=== PATIENT | male | born 1950 | race Caucasian/White ===

== ENCOUNTER 2017-02-27 16:26 | Emergency (ER) | payer MEDICARE ==
[~2017-02-27] VITALS: Ht 172.7 cm; Wt 65.8 kg
[2017-02-27 18:40] LABS: MEAN CORPUSCULAR HGB CONC 34.4 g/dl (32.0-36.5); MEAN CORPUSCULAR VOLUME 93.1 fl (80.0-96.0); PLATELET COUNT, AUTOMATED 250 k/mm3 (150-450); RED CELL DISTRIBUTION WIDTH 12.5 % (11.5-14.5); WHITE BLOOD COUNT 11.2 K/mm3 (4.0-10.0)
[2017-02-27 18:43] LABS: BASO # 0.1 K/mm3 (0.0-0.2); BASO % 0.5 % (0.0-1.0); EOS # 0.4 K/mm3 (0.0-0.50); EOS % 3.9 % (0.0-3.0); LARGE UNSTAINED CELL # 0.2 K/mm3 (0.0-0.4); LARGE UNSTAINED CELL % 1.8 % (0.0-4.0); LYMPH # 2.9 K/mm3 (1.5-4.5); LYMPH % 25.7 % (24.0-44.0); MONO # 0.7 K/mm3 (0.0-0.8); MONO % 6.5 % (0.0-5.0); NEUTROPHILS # 6.9 K/mm3 (1.8-7.7); NEUTROPHILS % 61.7 % (36.0-66.0)
[2017-02-27 18:44] LABS: DIFF SLIDE NUMBER 298
--- NOTE | 2017-02-27 19:00 | REPUSA ---
Clinical history: Right upper quadrant pain. Findings: The pancreas is limited in visualization secondary to overlying bowel gas, but appears dashawn sly unremarkable. The liver demonstrates uniform echotexture and echogenicity, with no mass lesions. The gallbladder is unremarkable. The common bile duct measures 6 mm and is within normal limits. The right kidney measures 10.5 x 7.3 x 4.9 cm. There is a simple right renal cyst, measuring 3.5 x 4.1 cm . There is no ascites. Impression: No acute findings. Simple right renal cyst.
[2017-02-27 19:05] LABS: ALBUMIN 4.3 GM/DL (3.2-5.2); ALBUMIN/GLOBULIN RATIO 1.43 (1.00-1.93); ALKALINE PHOSPHATASE 96 U/L (45-117); ALT/SGPT 36 U/L (12-78); AMYLASE 55 U/L (25-115); ANION GAP 8 MEQ/L (8-16); AST/SGOT 22 U/L (15-37); BILIRUBIN,DIRECT 0.2 MG/DL (0.0-0.2); BILIRUBIN,TOTAL 0.6 MG/DL (0.2-1.0); BLOOD UREA NITROGEN 10 MG/DL (7-18); CALCIUM LEVEL 9.2 MG/DL (8.8-10.2); CARBON DIOXIDE LEVEL 25 MEQ/L (21-32); CHLORIDE LEVEL 98 MEQ/L (98-107); CREATININE FOR GFR 0.73 MG/DL (0.70-1.30); GLOMERULAR FILTRATION RATE > 60.0 (>49); GLUCOSE, FASTING 96 MG/DL (80-110); SODIUM LEVEL 131 MEQ/L (136-145); TOTAL PROTEIN 7.3 GM/DL (6.4-8.2)
[2017-02-27 19:28] VITALS: BP 149/85
== END 2017-02-27 19:30 | disposition home or self-care (01) ==
LOC: M ED 18:00
DX: N28.1 Cyst of kidney, acquired (principal); R10.11 Right upper quadrant pain; F17.200 Nicotine dependence, unspecified, uncomplicated

== ENCOUNTER → 2017-04-29 | Outpatient (REF) | payer MEDICARE ==
[2017-04-29 11:10] LABS: BASO # 0.1 K/mm3 (0.0-0.2); BASO % 0.5 % (0.0-1.0); EOS # 0.2 K/mm3 (0.0-0.50); LARGE UNSTAINED CELL # 0.2 K/mm3 (0.0-0.4); LARGE UNSTAINED CELL % 1.4 % (0.0-4.0); LYMPH # 2.1 K/mm3 (1.5-4.5); LYMPH % 18.8 % (24.0-44.0); MEAN CORPUSCULAR HEMOGLOBIN 32.6 pg (27.0-33.0); MEAN CORPUSCULAR HGB CONC 33.8 g/dl (32.0-36.5); MEAN CORPUSCULAR VOLUME 96.5 fl (80.0-96.0); MONO # 0.6 K/mm3 (0.0-0.8); MONO % 5.4 % (0.0-5.0); NEUTROPHILS # 7.5 K/mm3 (1.8-7.7); NEUTROPHILS % 71.8 % (36.0-66.0); PLATELET COUNT, AUTOMATED 278 k/mm3 (150-450); WHITE BLOOD COUNT 10.5 K/mm3 (4.0-10.0)
[2017-04-29 11:41] LABS: ALBUMIN/GLOBULIN RATIO 1.21 (1.00-1.93); ALKALINE PHOSPHATASE 90 U/L (45-117); ALT/SGPT 43 U/L (12-78); ANION GAP 5 MEQ/L (8-16); AST/SGOT 21 U/L (15-37); BILIRUBIN,TOTAL 0.4 MG/DL (0.2-1.0); BLOOD UREA NITROGEN 7 MG/DL (7-18); CARBON DIOXIDE LEVEL 29 MEQ/L (21-32); CHLORIDE LEVEL 104 MEQ/L (98-107); CHOLESTEROL LEVEL 177 MG/DL (<200); CREATININE FOR GFR 0.72 MG/DL (0.70-1.30); GLOMERULAR FILTRATION RATE > 60.0 (>49); GLUCOSE, FASTING 86 MG/DL (80-110); SODIUM LEVEL 138 MEQ/L (136-145); TOTAL PROTEIN 7.3 GM/DL (6.4-8.2); TRIGLYCERIDES LEVEL 84 MG/DL (<150)
== END ==
LOC: M SFHCPLAZ 08:33
PROVIDERS: ATTEND Physician Assistant
DX: Z13.0 Encounter for screening for diseases of the blood and blood-forming organs and certain disorders involving the immune mechanism (principal); R10.9 Unspecified abdominal pain; Z13.220 Encounter for screening for lipoid disorders; Z12.5 Encounter for screening for malignant neoplasm of prostate; R53.83 Other fatigue
CPT/HCPCS: 80053; 80061; 82306; 84443; 85025; G0103

== ENCOUNTER 2017-08-05 08:00 | Outpatient (CLI) | payer MEDICARE ==
[~2017-08-05] VITALS: Ht 172.7 cm; Wt 66.7 kg
[~2017-08-05 08:00] MED LIST: CENT1TAB PO; CRES10TA32 PO; LISI10TA4 PO
[2017-08-05] MEDS ORDERED: NS 1,000 ML IV ONE (08:15)
[2017-08-05] MEDS ORDERED: PROPOFOL 200 MG/20 ML VIAL As Ordered ONE ×2 (08:49→09:05)
[2017-08-05] MEDS ORDERED: LIDOCAINE 2% INJ 100 MG/5 ML SDV (FOR ANES.) As Ordered ONE (08:49)
--- NOTE | 2017-08-05 09:10 | ROOR ---
Patient Name: Adolph Manley Procedure Date: 08/05/2017 8:45 AM Date of : 1950 Age: 67 Room: [facility] Gender: Male Note Status: Finalized Procedure: Total Colonoscopy to Cecum + Cold Snare Polypectomy Indications: Lower abdominal pain, Change in bowel habits Providers: Ryan Thomson MD Referring MD: ZACHERY Koroma Requesting Provider: Medicines: Monitored Anesthesia Care Complications: No immediate complications. Procedure: Pre-Anesthesia Assessment: - The heart rate, respiratory rate, oxygen saturations, blood pressure, adequacy of pulmonary ventilation, and response to care were monitored throughout the procedure. The Colonoscope was introduced through the anus and advanced to the cecum, identified by appendiceal orifice and ileocecal valve. The colonoscopy was performed without difficulty. The patient tolerated the procedure well. The quality of the bowel preparation was excellent. Findings: The perianal and digital rectal examinations were normal. Non-bleeding internal hemorrhoids were found during retroflexion. The hemorrhoids were small and Grade I (internal hemorrhoids that do not prolapse). Scattered small-mouthed diverticula were found in the recto-sigmoid colon, sigmoid colon and descending colon. Two sessile polyps were found in the cecum. The polyps were small in size. These polyps were removed with a cold snare. Resection and retrieval were complete. A small polyp was found in the rectum. The polyp was sessile. The polyp was removed with a cold snare. Resection and retrieval were complete. The exam was otherwise without abnormality on direct and retroflexion views. Impression: - Non-bleeding internal hemorrhoids. - Diverticulosis in the recto-sigmoid colon, in the sigmoid colon and in the descending colon. - Two small polyps in the cecum, removed with a cold snare. Resected and retrieved. - One small polyp in the rectum, removed with a cold snare. Resected and retrieved. - The examination was otherwise normal on direct and retroflexion views. - The exam was otherwise normal to the cecum. Recommendation: - Patient has a contact number available for emergencies. The signs and symptoms of potential delayed complications were discussed with the patient. Return to normal activities tomorrow. Written discharge instructions were provided to the patient. - High fiber diet. - Discharge patient to home. - Continue present medications. - Await pathology results. - Telephone GI clinic for pathology results in 1 week. - Check Portal Online for Path Results.([email or web address]) - Repeat colonoscopy in 5 years for surveillance based on pathology results. - The findings and recommendations were discussed with the patient's family. Ryan Thomson MD Ryan Thomson MD 08/05/2017 9:09:36 AM This report has been signed electronically. Number of Addenda: 0 Note Initiated On: 08/05/2017 8:45 AM Estimated Blood Loss: Estimated blood loss: none.
[2017-08-05 09:35] VITALS: BP 138/67
== END 2017-08-05 09:46 | disposition home or self-care (01) ==
LOC: M OPP 08:00
PROVIDERS: ATTEND Internal Medicine Gastroenterology
DX: R10.30 Lower abdominal pain, unspecified (principal); R19.4 Change in bowel habit; D12.0 Benign neoplasm of cecum; K62.1 Rectal polyp; K64.0 First degree hemorrhoids; K57.30 Diverticulosis of large intestine without perforation or abscess without bleeding; I10 Essential (primary) hypertension; E78.5 Hyperlipidemia, unspecified; Z87.891 Personal history of nicotine dependence; Z79.899 Other long term (current) drug therapy

== ENCOUNTER 2017-10-09 17:42 | Emergency (ER) | payer MEDICARE ==
[~2017-10-09] VITALS: Ht 172.7 cm; Wt 68.2 kg
[~2017-10-09 17:42] MED LIST changes: -CHLO125TA PO; -LISI-538 PO; -POTA10TAB
[2017-10-09] MEDS ORDERED: POTA10TAB (17:55)
[2017-10-09] MEDS ORDERED: LISI-538 PO (17:55)
[2017-10-09] MEDS ORDERED: CHLO125TA PO (17:55)
[2017-10-09] MEDS ORDERED: CHLORTHALIDONE 25 MG TAB PO ONE (20:30)
[2017-10-09] MEDS ORDERED: LISINOPRIL 10 MG TAB PO ONE (20:30)
[2017-10-09 20:59] LABS: ANION GAP 9 MEQ/L (8-16); BLOOD UREA NITROGEN 10 MG/DL (7-18); CALCIUM LEVEL 9.5 MG/DL (8.8-10.2); CARBON DIOXIDE LEVEL 27 MEQ/L (21-32); CHLORIDE LEVEL 103 MEQ/L (98-107); CREATININE FOR GFR 0.77 MG/DL (0.70-1.30); GLOMERULAR FILTRATION RATE > 60.0 (>49); GLUCOSE, FASTING 92 MG/DL (80-110); POTASSIUM SERUM 4.3 MEQ/L (3.5-5.1); SODIUM LEVEL 139 MEQ/L (136-145)
[2017-10-09 21:38] VITALS: BP 164/73
== END 2017-10-09 21:57 | disposition home or self-care (01) ==
LOC: M ED 17:42
DX: I10 Essential (primary) hypertension (principal); Z79.899 Other long term (current) drug therapy; Z87.891 Personal history of nicotine dependence
CPT/HCPCS: 36415; 76775; 80048; 81001; 90471; 90670; 99284; G0463

== ENCOUNTER → 2017-10-09 | Outpatient (CLI) | payer MEDICARE ==
[~2017-10-09] MED LIST changes: +CHLO125TA PO; +LISI-538 PO; +POTA10TAB
--- NOTE | 2017-10-09 15:17 | REP ---
ULTRASOUND ABDOMINAL AORTA: Real-time sonographic evaluation of abdominal aorta performed. There is no sonographic evidence of abdominal aortic aneurysm. Maximum AP diameter of proximal abdominal aorta is 2.0 cm, mid aspect 1.6 to 1.7 cm, and distally 1.6 cm. Right common iliac artery measures 7 x 6 mm and left 8 x 6 mm. IMPRESSION: No sonographic evidence of abdominal aortic aneurysm. Signed by Jovani Castelan MD 10/09/2017 03:51 P
== END ==
LOC: M RAD 14:42
PROVIDERS: ATTEND Family Medicine
DX: I16.0 Hypertensive urgency (principal)

== ENCOUNTER → 2017-10-12 | Outpatient (CLI) | payer MEDICARE ==
[~2017-10-12] MED LIST changes: +CHLO125TA PO; +LISI-538 PO; +POTA10TAB
--- NOTE | 2017-10-12 14:42 | REP ---
CAROTID ULTRASOUND: Real-time ultrasound evaluation and duplex Doppler interrogation of the extracranial carotid vasculature is performed. There is mild plaquing and narrowing in both carotid bulbs extending into the internal and external carotid arteries. Luminal narrowing is less than 50%. There is no evidence of hemodynamically significant stenosis of either internal carotid artery. Normal flow velocities are seen. The vertebral arteries demonstrate normal direction of flow. RIGHT LEFT Peak systolic velocity ICA 97.8 cm/s 86.8 cm/s End diastolic velocity ICA 37.3 cm/s 25.3 cm/s Peak systolic velocity CCA 117.1 cm/s 105 cm/s Peak systolic velocity ECA 107 cm/s 103 cm/s ICA/CCA ratio 0.83 0.83 IMPRESSION: Bilateral luminal narrowing of the internal carotid arteries less than 50%. No evidence of hemodynamically significant stenosis. Signed by Jovani Castelan MD 10/12/2017 02:33 P
== END ==
LOC: M RAD 13:34
PROVIDERS: ATTEND Family Medicine
DX: R09.89 Other specified symptoms and signs involving the circulatory and respiratory systems (principal)

== ENCOUNTER → 2017-11-26 | Outpatient (REF) | payer MEDICARE ==
[2017-11-26 14:42] LABS: ANION GAP 5 MEQ/L (8-16); BLOOD UREA NITROGEN 24 MG/DL (7-18); CALCIUM LEVEL 9.5 MG/DL (8.8-10.2); CARBON DIOXIDE LEVEL 28 MEQ/L (21-32); CHLORIDE LEVEL 107 MEQ/L (98-107); CHOLESTEROL LEVEL 92 MG/DL (<200); CHOLESTEROL RISK RATIO 1.957 (<5); CREATININE FOR GFR 1.16 MG/DL (0.70-1.30); GLOMERULAR FILTRATION RATE > 60.0 (>49); GLUCOSE, FASTING 96 MG/DL (80-110); HDL CHOLESTEROL 47 MG/DL (>40); LDL CHOLESTEROL 31.4 MG/DL (<100); NON-HDL-C 45 MG/DL; POTASSIUM SERUM 4.6 MEQ/L (3.5-5.1); SODIUM LEVEL 140 MEQ/L (136-145); TRIGLYCERIDES LEVEL 68 MG/DL (<150)
[2017-11-26 22:19] LABS: ESTIMATED AVERAGE GLUCOSE 120 MG/DL (60-110); HEMOGLOBIN A1c 5.8 %
[2017-11-28 00:06] LABS: H PYLORI SERUM QUANT IGM <9.0 units (0.0-8.9)
[2017-11-28 00:06] LABS: H PYLORI SERUM QUANT IgG ABY <0.9 U/mL (0.0-0.8)
== END ==
LOC: M SFHCPLAZ 09:51
DX: R10.13 Epigastric pain (principal); E78.00 Pure hypercholesterolemia, unspecified; I10 Essential (primary) hypertension
CPT/HCPCS: 83036

== ENCOUNTER → 2018-08-02 | Outpatient (REF) | payer MEDICARE ==
[2018-08-02 14:49] LABS: ANION GAP 8 MEQ/L (8-16); BLOOD UREA NITROGEN 19 MG/DL (7-18); CALCIUM LEVEL 9.6 MG/DL (8.8-10.2); CARBON DIOXIDE LEVEL 26 MEQ/L (21-32); CHLORIDE LEVEL 103 MEQ/L (98-107); CREATININE FOR GFR 1.14 MG/DL (0.70-1.30); GLOMERULAR FILTRATION RATE > 60.0 (>49); POTASSIUM SERUM 4.6 MEQ/L (3.5-5.1); SODIUM LEVEL 137 MEQ/L (136-145)
[2018-08-02 17:48] LABS: GLUCOSE, FASTING 98 MG/DL (70-100)
[2018-08-02 23:59] LABS: PSA SCREENING 0.76 NG/ML (< 4.0)
[2018-08-03 01:09] LABS: ESTIMATED AVERAGE GLUCOSE 108 MG/DL (60-110); HEMOGLOBIN A1c 5.4 %
== END ==
LOC: M SFHCPLAZ 08:16
DX: R73.03 Prediabetes (principal); I10 Essential (primary) hypertension; Z12.5 Encounter for screening for malignant neoplasm of prostate
CPT/HCPCS: 83036

== ENCOUNTER → 2019-02-04 | Outpatient (CLI) | payer MEDICARE ==
[~2019-02-04] MED LIST changes: +E-Z-GAS II EFFERVESCENT PACKET (SODIUM BICARB./CITRIC ACID/SIMETHICONE) As Ordered ONE; +E-Z-HD 98% w/w 340GM SUSP BTL As Ordered ONE; +E-Z-PAQUE 96% w/w SUSP 176GM BTL As Ordered ONE; +POTA10808; -POTA10TAB
--- NOTE | 2019-02-04 18:25 | REP ---
UPPER GI AIR CONTRAST AND SMALL BOWEL FOLLOW THROUGH The procedure was performed under the direct supervision of Dr. Soliman. The images were reviewed with Dr. Soliman The mechanic and welder film shows no organomegaly or pathological masses. The intestinal gas pattern is non-specific. Liquid barium and gas producing crystals were given in the erect position as well as liquid barium in the prone oblique position in order to perform a double contrast upper GI examination. Additionally liquid barium was given at the end of the examination in order to perform a small bowel follow through. The oral and pharyngeal stages of deglutition are unremarkable. Esophageal transport is prompt and efficient and there is no esophagitis, stricture, mucosal ring or hiatal hernia. Gastroesophageal reflux is not demonstrated on this examination. The stomach pantoja are normally outlined . The rugal folds are smooth and regular. There is no gastritis neoplasm or ulcer disease. The duodenal pantoja are normally outlined . The mucosal folds are smooth and regular. There is no duodenitis pancreatitis peptic ulcer disease or neoplasm. The visualized portion of the proximal small bowel appears normal in course and caliber. The barium column was followed through the small bowel to the level of the terminal ileum. Small bowel transit time is approximately 1 hour . During fluoroscopy gentle palpation shows all loops are freely movable and pliable. There are no fixed or angulated loops. The small bowel mucosal pattern is normal in course and caliber. There is no transition to suggest a partial small-bowel obstruction. Spot filming of the terminal ileum shows it to be unremarkable. Impression: Essentially unremarkable double contrast upper GI and small bowel follow through examination. 3.3 minutes of fluoro time was utilized for this procedure. Reviewed by JUSTINE Grace 02/04/2019 04:35 P Electronically Signed by Ryland Soliman MD 02/04/2019 06:16 P
== END ==
LOC: M RAD 08:44
PROVIDERS: ATTEND Family Medicine
DX: R10.13 Epigastric pain (principal)

== ENCOUNTER → 2019-09-16 | Outpatient (REF) | payer MEDICARE ==
[~2019-09-16] MED LIST changes: +CRES10TA PO; -CRES10TA32 PO; -E-Z-GAS II EFFERVESCENT PACKET (SODIUM BICARB./CITRIC ACID/SIMETHICONE) As Ordered ONE; -E-Z-HD 98% w/w 340GM SUSP BTL As Ordered ONE; -E-Z-PAQUE 96% w/w SUSP 176GM BTL As Ordered ONE
[2019-09-16 10:11] LABS: BLOOD UREA NITROGEN 19 MG/DL (7-18); CALCIUM LEVEL 9.1 MG/DL (8.8-10.2); CARBON DIOXIDE LEVEL 28 MEQ/L (21-32); CHLORIDE LEVEL 102 MEQ/L (98-107); CHOLESTEROL LEVEL 197 MG/DL (<200); CHOLESTEROL RISK RATIO 5.051 (<5); CREATININE FOR GFR 1.22 MG/DL (0.70-1.30); GLOMERULAR FILTRATION RATE > 60.0 (>42); GLUCOSE, FASTING 97 MG/DL (70-100); HDL CHOLESTEROL 39 MG/DL (>40); LDL CHOLESTEROL 125 MG/DL (<100); NON-HDL-C 158 MG/DL; POTASSIUM SERUM 4.9 MEQ/L (3.5-5.1); SODIUM LEVEL 136 MEQ/L (136-145); TRIGLYCERIDES LEVEL 165 MG/DL (<150)
[2019-09-16 10:26] LABS: HEMOGLOBIN A1c 5.9 %
== END ==
LOC: M SFHCPLAZ 07:58
PROVIDERS: ATTEND Family Medicine
DX: R73.03 Prediabetes (principal); E78.00 Pure hypercholesterolemia, unspecified; I10 Essential (primary) hypertension; Z12.5 Encounter for screening for malignant neoplasm of prostate
CPT/HCPCS: 36415; 80048; 80061; 83036; G0103

== ENCOUNTER → 2020-12-14 | Outpatient (REF) | payer MEDICARE ==
[~2020-12-14] MED LIST changes: -LISI-538 PO; +LISI10TA22 PO; -LISI10TA4 PO; +LISI20TA33 PO
[2020-12-14 16:00] LABS: HEMOGLOBIN A1c 5.8 %
[2020-12-14 16:16] LABS: CHOLESTEROL RISK RATIO 6.428 (<5)
== END ==
LOC: M SFHCPLAZ 13:03
PROVIDERS: ATTEND Family Medicine
DX: Z13.220 Encounter for screening for lipoid disorders (principal); Z13.1 Encounter for screening for diabetes mellitus; E78.00 Pure hypercholesterolemia, unspecified; R73.01 Impaired fasting glucose

== ENCOUNTER → 2021-04-17 | Outpatient (REF) | payer MEDICARE ==
[2021-04-17 13:48] LABS: CHOLESTEROL RISK RATIO 5.363 (<5)
== END ==
LOC: M SFHCPLAZ 09:31
PROVIDERS: ATTEND Family Medicine
DX: E78.00 Pure hypercholesterolemia, unspecified (principal)

== ENCOUNTER → 2021-09-04 | Outpatient (CLI) | payer MEDICARE ==
[2021-09-04 12:15] LABS: CALCIUM LEVEL 8.9 MG/DL (8.8-10.2); CREATININE FOR GFR 1.63 MG/DL (0.70-1.30); GLOMERULAR FILTRATION RATE 44.5 (>42); POTASSIUM SERUM 4.3 MEQ/L (3.5-5.1)
== END ==
LOC: M WUC 09:25
PROVIDERS: ATTEND Family Medicine
DX: I10 Essential (primary) hypertension (principal)

== ENCOUNTER → 2021-09-06 | Outpatient (CLI) | payer MEDICARE ==
[2021-09-06 12:33] LABS: CALCIUM LEVEL 9.2 MG/DL (8.8-10.2); CREATININE FOR GFR 1.37 MG/DL (0.70-1.30); GLOMERULAR FILTRATION RATE 54.4 (>42); POTASSIUM SERUM 4.4 MEQ/L (3.5-5.1)
== END ==
LOC: M WUC 09:32
PROVIDERS: ATTEND Family Medicine
DX: I10 Essential (primary) hypertension (principal)

== ENCOUNTER → 2021-09-09 | Outpatient (REF) | payer MEDICARE | LOC: M SFHCPLAZ 11:46 | PROVIDERS: ATTEND Family Medicine | DX: R79.89 Other specified abnormal findings of blood chemistry (principal) ==

== ENCOUNTER → 2021-09-23 | Outpatient (CLI) | payer MEDICARE ==
--- NOTE | 2021-09-23 11:54 | REP ---
INDICATION: ELEVATED SERUM CREATNINE. COMPARISON: None. TECHNIQUE: Real-time sonographic evaluation of the kidneys with Doppler FINDINGS: Multiple ultrasonographic images of the right kidney show the right kidney to measure 9.1 x 5.5 x 5.1 cm. The renal cortical echotexture is unremarkable. There are no solid masses. In the upper pole there is a 2.3 x 2.3 x 2.9 cm sized anechoic structure which exhibits posterior wall enhancement and increased through transmission. There is good corticomedullary differentiation. There is no hydronephrosis. There are no perinephric fluid collections. Multiple ultrasonographic images of the left kidney show the left kidney to measure 9.9 x 4.4 x 5.5 cm. The renal cortical echotexture is unremarkable. There are no masses. There is good corticomedullary differentiation. There is no hydronephrosis. There are no perinephric fluid collections. IMPRESSION: Simple right renal cyst. <Electronically signed by Rafeal Malone > 09/23/21 [id number]
[2021-09-23 12:16] LABS: APPEARANCE, URINE CLEAR (CLEAR); BACTERIA, URINE AUTO NEGATIVE (NEGATIVE); BILIRUBIN, URINE AUTO NEGATIVE (NEGATIVE); BLOOD, URINE BLOOD NEGATIVE (NEGATIVE); COLOR, URINE YELLOW (YELLOW); GLUCOSE, URINE (UA) AUTO NEGATIVE (NEGATIVE); KETONE, URINE AUTO NEGATIVE (NEGATIVE); LEUKOCYTE ESTERASE, URINE AUTO NEGATIVE (NEGATIVE); NITRITE, URINE AUTO NEGATIVE (NEGATIVE); PROTEIN, URINE AUTO NEGATIVE (NEGATIVE); RBC, URINE AUTO 0 /HPF (0-3); SPECIFIC GRAVITY URINE AUTO 1.011 (1.002-1.035); SQUAMOUS EPITHELIAL CELL UR AU 0 /HPF (0-6); UROBILINOGEN, URINE AUTO 0.2 mg/dL (0.0-2.0); WBC, URINE AUTO 0 /HPF (0-3)
[2021-09-23 12:40] LABS: SODIUM,RANDOM URINE 76 MEQ/L
[2021-09-23 12:46] LABS: CALCIUM LEVEL 9.1 MG/DL (8.8-10.2); CREATININE FOR GFR 1.35 MG/DL (0.70-1.30); GLOMERULAR FILTRATION RATE 55.3 (>42); POTASSIUM SERUM 4.9 MEQ/L (3.5-5.1)
== END ==
LOC: M RAD 11:14
PROVIDERS: ATTEND Family Medicine
DX: R79.89 Other specified abnormal findings of blood chemistry (principal)
CPT/HCPCS: 36415; 76775; 80048; 81001; 82570; 84300; G0103

== ENCOUNTER → 2021-12-30 | Outpatient (CLI) | payer MEDICARE ==
[2021-12-30 17:27] LABS: CALCIUM LEVEL 8.9 MG/DL (8.8-10.2); CREATININE FOR GFR 1.44 MG/DL (0.70-1.30); GLOMERULAR FILTRATION RATE 51.3 (>42); POTASSIUM SERUM 4.7 MEQ/L (3.5-5.1)
== END ==
LOC: M WUC 09:54
PROVIDERS: ATTEND Family Medicine
DX: R79.89 Other specified abnormal findings of blood chemistry (principal)

== ENCOUNTER → 2022-01-21 | Outpatient (CLI) | payer MEDICARE ==
[2022-01-22 12:59] LABS: PROTEIN, URINE MANUAL TRACE mg/dL (NEGATIVE)
== END ==
LOC: M RAD 07:30
PROVIDERS: ATTEND Family Medicine
DX: R79.89 Other specified abnormal findings of blood chemistry (principal)

== ENCOUNTER → 2022-03-10 | Outpatient (REF) | payer MEDICARE | LOC: M SFHCPLAZ 09:35 | PROVIDERS: ATTEND Family Medicine | DX: N18.31 Chronic kidney disease, stage 3a (principal) ==

== ENCOUNTER → 2022-05-27 | Outpatient (CLI) | payer MEDICARE ==
[2022-05-27 14:55] LABS: ALBUMIN 4.3 GM/DL (3.2-5.2); CALCIUM LEVEL 9.1 MG/DL (8.8-10.2); CREATININE FOR GFR 1.37 MG/DL (0.70-1.30); GLOMERULAR FILTRATION RATE 54.4 (>42); MAGNESIUM LEVEL 1.9 MG/DL (1.8-2.4); PHOSPHORUS LEVEL 3.7 MG/DL (2.5-4.9); POTASSIUM SERUM 4.9 MEQ/L (3.5-5.1)
== END ==
LOC: M WUC 13:26
PROVIDERS: ATTEND Family Medicine
DX: N18.31 Chronic kidney disease, stage 3a (principal)

== ENCOUNTER → 2023-05-11 | Outpatient (CLI) | payer MEDICARE ==
[2023-05-11 17:25] LABS: HEMATOCRIT 38.5 % (42.0-52.0); MEAN CORPUSCULAR HEMOGLOBIN 31.7 pg (27.0-33.0); MEAN CORPUSCULAR HGB CONC 33.8 g/dl (32.0-36.5); MEAN CORPUSCULAR VOLUME 93.9 fl (80.0-96.0); PLATELET COUNT, AUTOMATED 237 10^3/uL (150-450); WHITE BLOOD COUNT 7.5 10^3/uL (4.0-10.0)
[2023-05-11 17:58] LABS: ALKALINE PHOSPHATASE 76 U/L (46-116); ALT/SGPT 25 U/L (7.0-40); AST/SGOT 22 U/L (<34); BILIRUBIN,TOTAL 0.6 MG/DL (0.3-1.2); BLOOD UREA NITROGEN 13 MG/DL (9-23); CALCIUM LEVEL 8.7 MG/DL (8.3-10.6); CARBON DIOXIDE LEVEL 22 MMOL/L (20-31); CHLORIDE LEVEL 107 MMOL/L (98-107); CHOLESTEROL LEVEL 85 MG/DL (<200); CHOLESTEROL RISK RATIO 2.38 (<5); CREATININE FOR GFR 1.23 MG/DL (0.70-1.30); GLOMERULAR FILTRATION RATE > 60.0 (>42); GLUCOSE, FASTING 102 MG/DL (74-106); HDL CHOLESTEROL 35.7 MG/DL (>40); LDL CHOLESTEROL 31.7 MG/DL (<100); NON-HDL-C 49.3 MG/DL; POTASSIUM SERUM 4.6 MMOL/L (3.5-5.1); SODIUM LEVEL 135 MMOL/L (136-145); TOTAL PROTEIN 6.6 G/DL (5.7-8.2); TRIGLYCERIDES LEVEL 88 MG/DL (<150)
[2023-05-13 23:07] LABS: PSA TOTAL 0.4 ng/mL (0.0-4.0)
== END ==
LOC: M WUC 10:41
PROVIDERS: ATTEND Student in an Organized Health Care Education/Training Program
DX: E78.00 Pure hypercholesterolemia, unspecified (principal); N18.31 Chronic kidney disease, stage 3a; I10 Essential (primary) hypertension

== ENCOUNTER → 2024-03-04 | Outpatient (CLI) | payer MEDICARE ==
[2024-03-04 18:24] LABS: BASO # 0.1 10^3/uL (0.0-0.2); BASO % 0.7 % (0.0-1.0); EOS # 0.5 10^3/uL (0.0-0.5); EOS % 6.3 % (0.0-3.0); HEMATOCRIT 39.8 % (42.0-52.0); HEMOGLOBIN 13.7 g/dl (13.5-17.5); LYMPH # 1.8 10^3/uL (1.5-5.0); LYMPH % 24.8 % (24.0-44.0); MEAN CORPUSCULAR HEMOGLOBIN 32.4 pg (27.0-33.0); MEAN CORPUSCULAR HGB CONC 34.4 g/dl (32.0-36.5); MEAN CORPUSCULAR VOLUME 94.1 fl (80.0-96.0); MONO # 0.7 10^3/uL (0.0-0.8); MONO % 9.8 % (2.0-8.0); NEUTROPHILS # 4.2 10^3/uL (1.5-8.5); NEUTROPHILS % 58.1 % (36.0-66.0); PLATELET COUNT, AUTOMATED 214 10^3/uL (150-450); RED BLOOD COUNT 4.23 10^6/uL (4.30-6.10); WHITE BLOOD COUNT 7.3 10^3/uL (4.0-10.0)
[2024-03-04 18:32] LABS: HEMOGLOBIN A1c 5.8 % (4.0-6.0)
[2024-03-04 18:33] LABS: ALBUMIN 4.2 G/DL (3.2-5.2); BILIRUBIN,TOTAL 0.5 MG/DL (0.3-1.2); CALCIUM LEVEL 9.1 MG/DL (8.3-10.6); CHOLESTEROL RISK RATIO 2.84 (<5); CREATININE FOR GFR 1.49 MG/DL (0.70-1.30); GLOMERULAR FILTRATION RATE 49.1 (>42); HDL CHOLESTEROL 30.6 MG/DL (>40); LDL CHOLESTEROL 37.4 MG/DL (<100); NON-HDL-C 56.4 MG/DL; POTASSIUM SERUM 4.8 MMOL/L (3.5-5.1); TOTAL PROTEIN 7.1 G/DL (5.7-8.2)
== END ==
LOC: M WUC 13:41
PROVIDERS: ATTEND Student in an Organized Health Care Education/Training Program
DX: Z13.1 Encounter for screening for diabetes mellitus (principal); E78.00 Pure hypercholesterolemia, unspecified

== ENCOUNTER → 2024-04-27 | Outpatient (CLI) | payer MEDICARE | LOC: M WUC 11:52 | PROVIDERS: ATTEND Student in an Organized Health Care Education/Training Program | DX: M25.531 Pain in right wrist (principal) ==

== ENCOUNTER → 2024-08-18 | Outpatient (CLI) | payer MEDICARE ==
[~2024-08-18] MED LIST changes: +AMLO2.5T3 PO; +GABA-1171 PO; +LEXA1TAB2 PO; +LISI20TA37 PO; +METO1TAB33 PO; +OMEP-173 PO; +ROSU40TA81 PO
[2024-08-19 12:29] LABS: CREATININE, URINE 167.7 MG/DL
[2024-08-19 12:30] LABS: MAU/CREAT RATIO 36.9 MCG/MG (0.0-30.0)
[2024-08-19 12:31] LABS: CALCIUM LEVEL 9.5 MG/DL (8.3-10.6); CREATININE FOR GFR 1.66 MG/DL (0.70-1.30); GLOMERULAR FILTRATION RATE 43.2 (>42); POTASSIUM SERUM 5.5 MMOL/L (3.5-5.1)
== END ==
LOC: M WUC 10:48
PROVIDERS: ATTEND Student in an Organized Health Care Education/Training Program
DX: I10 Essential (primary) hypertension (principal)

== ENCOUNTER → 2024-08-22 | Outpatient (CLI) | payer MEDICARE ==
[2024-08-22 19:29] LABS: CALCIUM LEVEL 9.9 MG/DL (8.3-10.6); GLOMERULAR FILTRATION RATE 34.8 (>42); POTASSIUM SERUM 4.8 MMOL/L (3.5-5.1)
== END ==
LOC: M WUC 15:37
PROVIDERS: ATTEND Student in an Organized Health Care Education/Training Program
DX: E87.5 Hyperkalemia (principal)

== ENCOUNTER 2024-08-31 09:24 | Day surgery (SDC) | payer MEDICARE ==
[~2024-08-31] VITALS: Ht 172.7 cm; Wt 76.6 kg
[~2024-08-31 09:24] MED LIST changes: +LIDOCAINE 2% 100MG/5ML SDV (FOR ANES.) As Ordered ONE; +NS 250 ML IV ONE; +propofoL 200 MG/20 ML VIAL As Ordered ONE
[2024-08-31] MEDS ORDERED: ePHEDrine SULFATE 25 MG/5 ML(5MG/ML) SYRINGE As Ordered ONE (11:55)
[2024-08-31 12:14] VITALS: TEMP 97.3
[2024-08-31 13:05] VITALS: BP 125/61; O2SAT 97
== END 2024-08-31 13:20 | disposition home or self-care (01) ==
LOC: M OPP 09:24
PROVIDERS: ATTEND Internal Medicine Gastroenterology
DX: Z12.11 Encounter for screening for malignant neoplasm of colon (principal); K64.0 First degree hemorrhoids; K20.90 Esophagitis, unspecified without bleeding; K44.9 Diaphragmatic hernia without obstruction or gangrene; K57.30 Diverticulosis of large intestine without perforation or abscess without bleeding; K22.89 Other specified disease of esophagus; R12 Heartburn; Z86.0100 Personal history of colon polyps, unspecified; I10 Essential (primary) hypertension; E78.00 Pure hypercholesterolemia, unspecified; Z90.89 Acquired absence of other organs; Z79.899 Other long term (current) drug therapy
CPT/HCPCS: 43239; 88305; G0105

== ENCOUNTER → 2024-09-23 | Outpatient (CLI) | payer MEDICARE ==
[~2024-09-23] MED LIST changes: -LIDOCAINE 2% 100MG/5ML SDV (FOR ANES.) As Ordered ONE; -NS 250 ML IV ONE; -propofoL 200 MG/20 ML VIAL As Ordered ONE
[2024-09-23 13:05] LABS: CREATININE FOR GFR 1.36 MG/DL (0.70-1.30); GLOMERULAR FILTRATION RATE 54.4 (>42); POTASSIUM SERUM 4.7 MMOL/L (3.5-5.1)
== END ==
LOC: M WUC 09:32
PROVIDERS: ATTEND Student in an Organized Health Care Education/Training Program
DX: E87.5 Hyperkalemia (principal)

== ENCOUNTER → 2025-07-03 | Outpatient (CLI) | payer MEDICARE ==
[~2025-07-03] MED LIST changes: -POTA10808; +POTA10809
[2025-07-03 13:44] LABS: CALCIUM LEVEL 9.0 MG/DL (8.3-10.6); CARBON DIOXIDE LEVEL 24.0 MMOL/L (20-31); CHLORIDE LEVEL 106.0 MMOL/L (98-107); CREATININE FOR GFR 1.22 MG/DL (0.70-1.30); GLOMERULAR FILTRATION RATE 61.4 (>42); POTASSIUM SERUM 4.3 MMOL/L (3.5-5.1); SODIUM LEVEL 141.0 MMOL/L (136-145)
== END ==
LOC: M WUC 10:21
PROVIDERS: ATTEND Student in an Organized Health Care Education/Training Program
DX: I10 Essential (primary) hypertension (principal)